=== PATIENT | male | born 1970 ===

== ENCOUNTER 2018-08-12 21:45 | Emergency (ER) | payer OTHER ==
[2018-08-12 22:00] VITALS: BP 129/89
--- NOTE | 2018-08-12 22:00 | UC ---
Knee Pain HPI - HPI Summary HPI Summary: 47-year-old male comes in to clinic today with a chief complaint of left knee pain. Several hours ago the patient was moving would and a piece of wood fell and struck the medial aspect of his left knee. Pain was fairly severe but it dissipated. He is able to walk on it. Just prior to arrival the knee started swelling up and the pain increased greatly. It hurts to put any sort of weight on it and to try to bend the knee. No numbness or weakness no sensation deficit. - History of Current Complaint Stated Complaint: KNEE PAIN Time Seen by Provider: 08/12/18 21:47 - Allergies/Home Medications Allergies/Adverse Reactions: Allergies Allergy/AdvReac Type Severity Reaction Status Date / Time No Known Allergies Allergy Verified 08/12/18 22:01 Home Medications: Home Medications Ibuprofen TAB* [Motrin TAB* 800 MG] 800 mg PO ONCE 08/12/18 [History Confirmed 08/12/18] NK [No Home Medications Reported] 08/12/18 [History Confirmed 08/12/18] PMH/Surg Hx/FS Hx/Imm Hx Previously Healthy: Yes - RIGHT KNEE INJURY IN PAST - Family History Known Family History: Positive: Diabetes Review of Systems All Other Systems Reviewed And Are Negative: Yes Constitutional: Positive: Negative Skin: Positive: Bruising - LEFT KNEE MEDIAL ASPECT Eyes: Positive: Negative ENT: Positive: Negative Respiratory: Positive: Negative Cardiovascular: Positive: Negative Gastrointestinal: Positive: Negative Motor: Positive: Decreased ROM - LEFT KNEE Neurovascular: Positive: Negative Musculoskeletal: Positive: Other: - SEE HPI Neurological: Positive: Negative Psychological: Positive: Negative Is Patient Immunocompromised?: No Physical Exam Triage Information Reviewed: Yes Appearance: Well-Appearing, Well-Nourished, Pain Distress - MODERATE WITH ATTEMPTED WEIGH BEARING ON LEFT LEG Vital Signs Reviewed: Yes Eye Exam: Normal Eyes: Positive: Conjunctiva Clear Neck exam: Normal Neck: Positive: Supple Respiratory: Positive: No respiratory distress Musculoskeletal: Positive: Strength Intact, Other: - Examination of the left knee the knee Itself is nontender to palpation. The area where the impact of the piece of wood is tender to palpation on the anterior oh medial aspect of the knee. There is an effusion. The back the knee is also tender to palpation. Decreased range of motion of the knee secondary to pain. Unable to evaluate laxity due to pain. Neurological: Positive: Alert, Muscle Tone Normal Psychological Exam: Normal Psychological: Positive: Normal Response To Family, Age Appropriate Behavior Skin: Positive: Other - There is a 2 cm area of ecchymosis on the medial aspect of the left knee. Abrasion there is no full-thickness skin break. Knee Pain Course/Dx - Course Course Of Treatment: I discussed the x-rays with the patient. On the x-ray I do not see any fracture. There is an effusion. Radiologist reading is pending. Based on the effusion and the amount of pain I suspect internal derangement. Nursing put an Jaylon wrap on and a knee immobilizer and crutches here in clinic. We put ice on any are took some ibuprofen. He declined other pain medication. The plan is to have him call orthopedics in the morning for follow-up. - Differential Dx/Diagnosis Provider Diagnoses: LEFT KNEE CONTUSION/EFFUSION WITH PROBABLE INTERNAL DERANGEMENT Discharge - Sign-Out/Discharge Documenting (check all that apply): Patient Departure All imaging exams completed and their final reports reviewed: No - Discharge Plan Condition: Stable Disposition: HOME Patient Education Materials: Swollen Knee Joint (ED), Knee Pain (ED) Referrals: Joaquim Grace MD [Primary Care Provider] - Nabila Wolf MD [Medical Doctor] - Additional Instructions: FOLLOW UP WITH ORTHOPEDICS. THE RADIOLOGIST READING IS PENDING. GET RECHECKED FOR ANY WORSENING OF YOUR CONDITION OR QUESTIONS OR CONCERNS. - Billing Disposition and Condition Condition: STABLE Disposition: Home
--- NOTE | 2018-08-13 08:19 | UC ---
- Progress Note Progress Note: Patient Name: STEVE RAMIRES Medical Record#: [id number] Ordering Physician: Ward Schwartz MD Acct.#: [id number] : 1970 Age: 47 Sex: M Location: [facility] Exam Date: 08/12/182151 ADM Status: [facility] ER Order Information: KNEE LEFT 4+ VWS Accession Number: [id number] CPT: 71251 HISTORY: LEFT KNEE PAIN/SWELLING S/P TRAUMA COMPARISONS: None VIEWS: 4 , Frontal, lateral, axial, and oblique views of the left knee FINDINGS: BONE DENSITY: Normal. BONES: There is no displaced fracture. JOINTS: There is no arthropathy. There is large suprapatellar joint effusion without lipohemarthrosis. ALIGNMENT: There is no dislocation. SOFT TISSUES: Unremarkable. OTHER FINDINGS: None. IMPRESSION: JOINT EFFUSION. NO ACUTE OSSEOUS INJURY. IF SYMPTOMS PERSIST, RECOMMEND REPEAT IMAGING. R0 Preliminary Imaging Read NO DISCREPANCY <Electronically signed by Renny Romero MD in OV> 08/13/18801 Dictated By: Renny Romero MD Dictated Date/Time: 08/13/18801 Transcribed Date/Time: 08/13/18801 Copy to: CC:Joaquim Grace MD; Ward Schwartz MD Imaging - [facility] Imaging - [facility] [place] [address] [place] [address] This report is only to be considered final once signed by the Provider(s) as displayed in the "<Electronically Signed by >" field (s). Absence of a signature indicates the report is in a draft status and still needs to be finalized. In the event this document was created by someone other than the signing Provider, the individual initiating the document will be listed in the "Entered by:" or "Dictated by:" davila. 1 of 2 Discharge - Sign-Out/Discharge Documenting (check all that apply): Post-Discharge Follow Up All imaging exams completed and their final reports reviewed: Yes - Discharge Plan Condition: Stable Disposition: HOME Patient Education Materials: Swollen Knee Joint (ED), Knee Pain (ED) Referrals: Nabila Wolf MD [Medical Doctor] - Joaquim Grace MD [Primary Care Provider] - Additional Instructions: FOLLOW UP WITH ORTHOPEDICS. THE RADIOLOGIST READING IS PENDING. GET RECHECKED FOR ANY WORSENING OF YOUR CONDITION OR QUESTIONS OR CONCERNS. - Billing Disposition and Condition Condition: STABLE Disposition: Home
== END 2018-08-12 22:31 | disposition home or self-care (01) ==
LOC: UCEAST 21:45
DX: S80.02XA Contusion of left knee, initial encounter (principal); M25.462 Effusion, left knee; W22.8XXA Striking against or struck by other objects, initial encounter; Y92.9 Unspecified place or not applicable
CPT/HCPCS: 99213; G0463

== ENCOUNTER → 2019-06-07 05:50 | Day surgery (SDC) | payer OTHER ==
--- NOTE | 2019-05-30 12:20 | HP ---
AMENDED REPORT NOW INCLUDES DESIGNATED COSIGNER * ESIGNED BEFORE ADJUSTMENTS CC: Dr. Joaquim Grace * DATE OF ADMISSION: 06/07/2019. ATTENDING SURGEON: Dr. Shan Mckay * (AHMET Brar dictating). CHIEF COMPLAINT: Left inguinal hernia. HISTORY OF PRESENT ILLNESS: This is a 48-year-old, generally healthy male who beginning around six months ago noted pain in the left groin, particularly increased with activity. Subsequently, he also noted presence of a bulge in the left groin which reduced spontaneously when he is resting and/or at night. He notes occasionally gurgling in the bulge. He denies any significant change in terms of GI or function. He has not had anything to suggest incarceration or strangulation. He has not had to manually reduce the hernia. He was seen in the office by Dr. Mckay on 04/29/2019 at which time exam confirmed the presence of a left inguinal hernia. The patient had had a prior open inguinal hernia on the right as a child. There is no evidence of recurrence on the right. Dr. Mckay discussed with him the indications for surgery and the risks, benefits and alternatives, as well as the approaches for surgery. The patient is in agreement to proceed as scheduled with laparoscopic repair of left inguinal hernia with mesh. PAST MEDICAL HISTORY: Some seasonal environmental allergies. No other significant medical history including cardiovascular disease, diabetes, respiratory problems, bleeding or clotting disorders. PAST SURGICAL HISTORY: Laparoscopic cholecystectomy 2007 with subsequent ERCP with sphincterotomy for a retained common bile duct stone, open right inguinal herniorrhaphy in 1971, and knee surgery. CURRENT MEDICATIONS: Zyrtec 10 mg once daily prn (not currently requiring). DRUG ALLERGIES: None known. FAMILY HISTORY: Negative for anesthesia problems, bleeding, or clotting disorders. SOCIAL HISTORY: The patient is . 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 He is a former smoker who quit in 1999. He drinks one glass of wine most nights per week. He denies any recreational drug use. REVIEW OF SYSTEMS: General: No recent constitutional symptoms or acute illnesses. HEENT: No problems reported. Cardiovascular: No chest pain, palpitations, history of hypertension or heart murmur. Respiratory: No history of asthma, chronic cough, or shortness of breath. GI: No problems reported. : No problems reported. Endocrine: No diabetes or thyroid dysfunction. PHYSICAL EXAMINATION GENERAL: Well-nourished, well-developed male in no acute distress. SKIN: Warm and dry. No suspicious rashes or lesions. VITAL SIGNS: Height 73.5 ", weight 220 pounds. Blood pressure 102/66, pulse 72 , respirations 16. HEENT: Pupils equal and round, reactive. EOM's intact. No conjunctival pallor. Oropharynx: Teeth in good repair. No intraoral lesions. NECK: No lymphadenopathy, masses, or thyromegaly. LUNGS: Clear to auscultation. No wheezes. HEART: Regular rate and rhythm. No murmur noted. ABDOMEN: Well-healed laparoscopic incisions. Soft, nontender to palpation. No palpable masses or organomegaly with the exception of a reducible left inguinal hernia per Dr. Mckay' exam which was not repeated today. BACK: No spinous process or CVA tenderness. EXTREMITIES: No edema. RECTAL: Not done. NEUROLOGIC: Grossly intact. IMPRESSION: Left inguinal hernia. PLAN: Laparoscopic repair left inguinal hernia with mesh. AHMET BRAR [id number]/CPS #: [id number] [facility]ITAL[facility]
[~2019-06-07 05:50] MED LIST: Buffered Lidocaine 1% SYRIN* 1 ML/SYRINGE INTRADERM ONE; Bupivacaine 0.25% EPI 200,000* 30 ML SDV ONE; Dexamethasone IV* 4 MG/ML 1 ML (4 MG) IV SLOW PU ONE; Dexamethasone IV* 4 MG/ML 1 ML (4 MG) ONE; DiMENhydriNATE IV* 50 MG/ML VIAL IV PUSH PRN; Famotidine IV* 10 MG/ML 2 ML (20 mg) IV ONE; Glycopyrrolate IV* 0.2 MG/ML 1 ML VIAL ONE; Ketorolac INJ* 30 MG/ML 1 ML VIAL ONE; Lactated Ringers 1000 ML Bag* 1,000 ML IV SCH; Midazolam* 1 MG/ML 2 ML VIAL (2 MG) ONE; Naloxone* 0.4 MG/ML 1 ML VIAL IV PRN; Neostigmine Methylsulfate* 3 MG/3 ML SYRINGE ONE; Ondansetron INJ* 2 MG/ML VIAL ONE; Propofol* 10 MG/ML 20 ML BTL ONE; Rocuronium* 10 MG/ML VIAL ONE; Sodium Citrate/Citric Acid* 15 ML UDC ONE; Sodium Citrate/Citric Acid* 15 ML UDC PO ONE; ceFAZolin 2 GM in NS PREMIX(*) 2 GM/100 ML BAG IVPB ONE; fentaNYL* 50 MCG/ML 2 ML VIAL (100 MCG VIAL) IV PRN; fentaNYL* 50 MCG/ML 2 ML VIAL (100 MCG VIAL) ONE
--- NOTE | 2019-06-07 08:58 | OP ---
Operative Report - Blank - Operative Report Date of Operation: 06/07/19 Note: Brief Operative Note Preop Dx: Left Inguinal Hernia Postop Dx: same, indirect Procedure: Laparoscopic repair LIH w/ mesh Anesthesia: GET Surgeon: Woody Contract Engineer: AHMET Pedroza Fluids: 1000 ml RL EBL: none Specimen: none Drains: none Findings: as above Complications: none
[2019-06-07 10:02] VITALS: BP 120/82
--- NOTE | 2019-06-07 11:35 | OP ---
CC: Joaquim Grace MD* OPERATIVE REPORT: DATE OF OPERATION: 06/07/19 - SDS DATE OF : [birth year] SURGEON: Shan Mckay MD PROFESSIONAL SECURITY OFFICER: AHMET Brar ANESTHESIOLOGIST: Nish Quigley DO ANESTHESIA: General endotracheal. PRE-OP DIAGNOSIS: Left inguinal hernia. POST-OP DIAGNOSIS: Left inguinal hernia. OPERATIVE PROCEDURE: Laparoscopic preperitoneal repair, left inguinal hernia with mesh. ESTIMATED BLOOD LOSS: Minimal. IV FLUIDS: Crystalloid. SPECIMEN: None. DRAINS: None. COMPLICATIONS: None. COUNTS: Instrument, needle, and sponge counts were correct. DESCRIPTION OF PROCEDURE: The patient was brought to the operating room and placed on the table supine. Sequential compression devices were placed in both lower extremities. General anesthesia was administered. Tesfaye catheter was placed. He was positioned and padded appropriately. He was prepped and draped in the usual sterile fashion. He did receive appropriate intravenous antibiotics. Local anesthetic was infiltrated into the skin and soft tissue prior to making each incision. An infraumbilical incision was created and subcutaneous tissues divided with cautery. Anterior rectus fascia was divided transversely towards the left side. The underlying muscle was retracted laterally and a preperitoneal balloon dissector was positioned down to the level of pubic symphysis. This was insufflated under direct visualization. It was subsequently removed and replaced with a 12-mm blunt port. Carbon dioxide was insufflated to a pressure of 12 mmHg. Under direct visualization, two 5-mm trocars were placed along the midline. The dissection proceeded from the midline laterally identifying symphysis pubis, Az's ligament, inferior epigastric vessels, which were preserved anteriorly and the hernia sac in the indirect space. The dissection proceeded out laterally to the anterosuperior iliac spine. The hernia sac was dissected free from the cord structures, which were preserved. After completing the dissection, repair was performed with a Bard 3Dmax left-sided patch and this was positioned into the preperitoneal space and covered direct, indirect, and femoral spaces. The mesh was secured with single tack at the pubic and Az's ligament. After desufflating the preperitoneal space, there was noted to some pneumoperitoneum. The 12-mm port was then repositioned into the peritoneal cavity and peritoneoscopy was performed. This confirmed that there was no tear in the peritoneum and the mesh was in good position and well covered. The ports were then all removed and carbon dioxide was released. The umbilical incision was closed with 0 Vicryl in 2 layers approximating the posterior and anterior rectus sheath separately. The skin incisions were all closed with 4-0 Monocryl in subcuticular fashion. DermaFlex was applied. The patient tolerated the procedure well, extubated, and transferred to the Recovery in stable condition. [id number]/CPS #: [id number] MTDD
== END | disposition home or self-care (01) ==
LOC: OR 05:50
PROVIDERS: ATTEND Surgery
DX: K40.90 Unilateral inguinal hernia, without obstruction or gangrene, not specified as recurrent (principal); J30.2 Other seasonal allergic rhinitis; Z87.891 Personal history of nicotine dependence; Z68.30 Body mass index [BMI] 30.0-30.9, adult
CPT/HCPCS: A9270-GY; C1781; J0690; J1100; J1885; J2250; J2405; J2704; J2710; J3010